=== PATIENT | female | born 1940 | race Caucasian/White ===

== ENCOUNTER 2020-04-07 14:33 | Outpatient (CLI) | payer MEDICARE, SELFPAY ==
--- NOTE | ~2020-04-07 | XR_ITS ---
XR cervical spine 4-5V DATE: 04/07/2020 14:54 INDICATION: Posterior neck pain, right greater than left. TECHNIQUE: AP, open-mouth, lateral and swimmer views COMPARISON: 12/15/2015 cervical spine FINDINGS: There is reversal cervical curvature. C1 and C2 are normally aligned and the odontoid process is intact. The C2-3 interspace is relatively preserved but there is prominent anterior spurring. There is moderately severe degenerative disc disease with prominent spurring at C3-4, C4-5, C5-6 and C6-7. There is degenerative change at the apophyseal joints. There is uncovertebral joint spurring from C3- 4 through C6-7. No fracture or dislocation or locked facet. No prevertebral soft tissue swelling. IMPRESSION: Reversal of cervical curvature Severe degenerative disc disease and degenerative change at the apophyseal and uncovertebral joints, especially at C3-4 through C6-7 Reviewed, dictated and finalized at location A.
== END 2020-04-07 14:34 | disposition home or self-care (01) ==
PROVIDERS: PCP Internal Medicine; Visit Provider Physician Assistant
DX: M54.2 Cervicalgia (principal); M53.82 Other specified dorsopathies, cervical region
CPT/HCPCS: 72050

== ENCOUNTER 2020-04-14 07:28 | Outpatient (CLI) | payer MEDICARE, SELFPAY ==
--- NOTE | ~2020-04-14 | MR_ITS ---
EXAMINATION: MR cervical spine wo con DATE: 04/14/2020 08:50 INDICATION: Cervicalgia. TECHNIQUE: Magnetic resonance imaging (MRI) of the cervical spine was performed without intravenous c ontrast. Sequences included sagittal T2-weighted FSE, sagittal T2-weighted FS FSE, sagittal T1-weight ed FSE, axial MERGE and axial T2-weighted FSE. COMPARISON: None FINDINGS: Mild reversal of the normal cervical lordosis. 1-2 mm anterolisthesis C2 on C3, 2 mm retrolisthesis C 5 on C6 and 1-2 mm retrolisthesis C6 on C7. Vertebral body heights are normal. Severe disc height lo ss with prominent degenerative endplate changes at C3-C4 through C6-C7. Mild disc height loss at C2-C 3. Cord signal intensity is normal. Not included on the axial images likely central disc extrusions w ith disc material extending craniocaudally to the level of the endplates at T5-T6 and more prominentl y at T2-T3 and small disc protrusion at T4-T5. The following disc levels are specifically discussed: C2-C3: Disc is minimally bulging. There is mild bilateral uncovertebral joint osteoarthritis. There i s severe left and moderate to severe right facet joint osteoarthritis. There is mild left neural fora vera stenosis. There is mild central canal stenosis. C3-C4: Disc is bulging. There is severe bilateral uncovertebral joint osteoarthritis. There is modera te left and severe right facet joint osteoarthritis. There is moderate bilateral neural foraminal gretchen nosis. There is mild central canal stenosis with flattening of the ventral surface of the cord. C4-C5: Disc is bulging. There is severe bilateral uncovertebral joint osteoarthritis. There is severe bilateral facet joint osteoarthritis. There is moderate bilateral neural foraminal stenosis. There i s mild central canal stenosis with flattening of the ventral surface of the cord, more prominent on t he right. C5-C6: Right-sided predominant posterior disc osteophyte complex. There is severe bilateral uncoverte bral joint osteoarthritis. There is moderate right and moderate to severe left facet joint osteoarthr itis. There is moderate bilateral neural foraminal stenosis. There is moderate central canal stenosis with indentation of the ventral surface of the cord which is secondarily widened in transverse diame ter. C6-C7: Right-sided predominant posterior disc osteophyte complex. There is severe bilateral uncoverte bral joint osteoarthritis. There is moderate right and moderate to severe left facet joint osteoarthr itis. There is moderate left and mild to moderate right neural foraminal stenosis. There is mild cent ral canal stenosis with flattening of the right ventral surface of the cord. C7-T1: The disc does not extend beyond the endplate margin. There is mild right and minimal left unco vertebral joint osteoarthritis. There is mild right and severe left facet joint osteoarthritis. There is mild left neural foraminal stenosis. There is no central canal stenosis. IMPRESSION: 1. Severe cervical spondylosis. Reviewed, dictated and finalized at location A.
== END 2020-04-14 07:29 | disposition home or self-care (01) ==
PROVIDERS: PCP Internal Medicine; Visit Provider Physician Assistant
DX: M47.892 Other spondylosis, cervical region (principal)
CPT/HCPCS: 72141

== ENCOUNTER 2020-06-28 09:57 | Outpatient (CLI) | payer MEDICARE, SELFPAY ==
[2020-06-28 10:44] LABS: Basophils Absolute Auto 0.1 K/mm3 (0.0-0.1); Basophils Percent Auto 1.2 % (0.2-1.2); Eosinophils Absolute Auto 0.3 K/mm3 (0-0.3); Eosinophils Percent Auto 5.6 % (0-4.4); Hematocrit 43.6 % (37.0-47.0); Hemoglobin 14.4 g/dL (12.0-15.0); Immature Granulocyte Absolute 0.01 K/mm3 (0.00-0.031); Immature Granulocyte Percent A 0.2 % (0-0.5); Lymphocytes Absolute Auto 1.79 K/mm3 (0.9-3.2); Lymphocytes Percent Auto 34.8 % (18.3-44.2); Mean Corpuscular Hemoglobin 30.8 pg (26-34); Mean Corpuscular Volume 93.2 fl (80-100); Monocytes Absolute Auto 0.4 K/mm3 (0.1-0.6); Monocytes Percent Auto 8.2 % (2.6-8.5); Neutrophils Absolute Auto 2.6 K/mm3 (1.3-6.7); Platelet Count Result 260 k/mm3 (150-375); Red Blood Count 4.68 M/mm3 (4.2-5.4); Red Cell Distribution Width 12.3 % (11.5-14.5); White Blood Count 5.1 K/mm3 (4.5-10.0)
[2020-06-28 11:35] LABS: Cholesterol 155 mg/dL (0-200); HDL Direct 69 mg/dL; Magnesium 2.3 mg/dL (1.6-2.3); Triglycerides 68 mg/dL (<150); Vitamin D 25 Hydroxy 34.5 ng/mL
[2020-06-28 11:49] LABS: LDL Cholesterol Direct 63 mg/dL
[2020-06-28 12:44] LABS: Folic Acid 15.2 ng/mL (2.76->20)
== END 2020-06-28 09:58 | disposition home or self-care (01) ==
LOC: ANHLAB 09:59
PROVIDERS: PCP Internal Medicine; Visit Provider Internal Medicine
DX: E78.00 Pure hypercholesterolemia, unspecified (principal); E55.9 Vitamin D deficiency, unspecified; I10 Essential (primary) hypertension
CPT/HCPCS: 36415; 80061; 82306; 82607; 82746; 83735; 84443; 85025

== ENCOUNTER 2020-12-27 13:09 | Outpatient (CLI) | payer MEDICARE, SELFPAY ==
--- NOTE | ~2020-12-27 | XR_ITS ---
XR foot LT min 3V DATE: 12/27/2020 13:30 INDICATION: Injury one week ago. Pain at first metatarsophalangeal joint TECHNIQUE: 4 views COMPARISON: None FINDINGS: There is prominent plantar and mild posterior calcaneal enthesopathy. No fracture or dislocation, periosteal reaction or bone destruction is evident. IMPRESSION: Calcaneal enthesopathy Reviewed, dictated and finalized at location A. IMPRESSION: Calcaneal enthesopathy
== END 2020-12-27 13:10 | disposition home or self-care (01) ==
LOC: ANHIMG 13:13
PROVIDERS: PCP Internal Medicine; Visit Provider Internal Medicine
DX: M79.672 Pain in left foot (principal); M77.32 Calcaneal spur, left foot
CPT/HCPCS: 73630

== ENCOUNTER 2021-10-03 09:31 | Outpatient (CLI) | payer MEDICARE, SELFPAY ==
[2021-10-03 16:25] LABS: Basophils Absolute Auto 0.1 K/mm3 (0.0-0.1); Basophils Percent Auto 1.1 % (0.2-1.2); Eosinophils Absolute Auto 0.4 K/mm3 (0-0.3); Eosinophils Percent Auto 6.6 % (0-4.4); Immature Granulocyte Absolute 0.01 K/mm3 (0.00-0.031); Immature Granulocyte Percent A 0.2 % (0-0.5); Lymphocytes Absolute Auto 1.75 K/mm3 (0.9-3.2); Lymphocytes Percent Auto 32.1 % (18.3-44.2); Mean Corpuscular HGB Conc 31.8 g/dl (32-36); Mean Corpuscular Hemoglobin 31.1 pg (26-34); Mean Corpuscular Volume 97.8 fl (80-100); Mean Platelet Volume 10.1 fl (7.4-10.4); Monocytes Absolute Auto 0.4 K/mm3 (0.1-0.6); Neutrophils Absolute Auto 2.9 K/mm3 (1.3-6.7); Platelet Count Result 249 k/mm3 (150-375); Red Cell Distribution Width 12.5 % (11.5-14.5); White Blood Count 5.5 K/mm3 (4.5-10.0)
[2021-10-03 16:38] LABS: Alanine Aminotransferase 14 U/L (4-35); Albumin Level 4.4 g/dL (3.5-5.1); Alkaline Phosphatase 76 U/L (38-126); Anion Gap 7 mmol/L (8-16); Aspartate Amino Transferase 70 U/L (14-36); Bilirubin,Total 0.8 mg/dL (0.2-1.3); Blood Urea Nitrogen 16 mg/dL (7-17); Calcium 9.4 mg/dL (8.4-10.2); Carbon Dioxide 28 mmol/L (22-30); Chloride 104 mmol/L (98-107); Cholesterol 190 mg/dL (0-200); Estimated Glomerular Filt Rate > 60; Glucose 102 mg/dL (65-110); HDL Direct 50 mg/dL; Potassium 4.5 mmol/L (3.4-5.0); Sodium 139 mmol/L (137-145); Triglycerides 109 mg/dL (<150)
[2021-10-03 16:49] LABS: LDL Cholesterol Direct 101 mg/dL
[2021-10-03 17:14] LABS: Vitamin D 25 Hydroxy 41.7 ng/mL
[2021-10-03 17:45] LABS: Folic Acid 11.9 ng/mL (2.76->20)
== END 2021-10-03 09:32 | disposition home or self-care (01) ==
LOC: ANHWCLAB 09:35
PROVIDERS: PCP Internal Medicine; Visit Provider Internal Medicine
DX: R53.83 Other fatigue (principal); E55.9 Vitamin D deficiency, unspecified; I10 Essential (primary) hypertension; E78.5 Hyperlipidemia, unspecified
CPT/HCPCS: 36415; 80053; 80061; 82306; 82607; 82746; 84443; 85025

== ENCOUNTER → 2021-12-22 01:48 | Outpatient (CLI) | payer MEDICARE, SELFPAY ==
[2021-12-22 13:04] LABS: SARS-CoV-2 RNA PCR Negative
== END ==
PROVIDERS: PCP Internal Medicine; Visit Provider Internal Medicine
DX: B34.9 Viral infection, unspecified (principal); Z20.822 Contact with and (suspected) exposure to COVID-19
CPT/HCPCS: C9803; U0003; U0005

== ENCOUNTER 2022-03-06 16:22 | Outpatient (CLI) | payer MEDICARE, SELFPAY ==
--- NOTE | ~2022-03-06 | DEXA_ITS ---
Bone Density Report Name: RADHA BROCK Age: 81 Sex: Female Ethnicity: White Date of : 1940 Indication: postmenopausal; screening for osteoporosis; height loss; Referring Provider: UNKNOWN, UNKNOWN Study: Bone densitometry was performed. Exam Date: March 06, 2022 Accession number: [id number] Bone Density: Region BMD T-score Z-score Classification AP Spine(L1-L4) 1.119 0.7 3.3 Normal Femoral Neck (Left) 0.708 -1.3 1.0 Osteopenia Total Hip (Left) 0.911 -0.3 1.8 Normal Femoral Neck (Right) 0.783 -0.6 1.7 Normal Total Hip (Right) 0.907 -0.3 1.8 Normal Total Hip Mean 0.909 -0.3 1.8 Normal World Health Organization criteria for BMD impression classify patients as: Normal (T-score at or above -1.0), Osteopenia (T-score between -1.0 and -2.5), or Osteoporosis (T-score at or below -2.5). 10-year Fracture Risk(1): Major Osteoporotic Fracture 12% Hip Fracture 2.5% Reported Risk Factors: [place] (), Neck BMD=0.708, BMI=27.8 (1) FRAX(R) Version 3.08. Fracture probability calculated for an untreated patient. Fracture probability may be lower if the patient has received treatment. Clinical Information Provided by Patient: Has used the following medications: Vitamin D Patient maximum height was 61 Menopause Age: 60 Drinks caffeinated beverages Onset of menses at age 14 Number of children 2 Impression: The patient has low bone mass, based on the Left Femoral Neck T-score. The patient has an estimated ten-year risk of hip fracture of 2.5% and an estimated ten-year risk of major fracture of 12%, based on the WHO FRAX algorithm. Discussion: BONE DENSITY IS LOW AT ONE OR MORE SKELETAL SITES. This patient's lowest T-score is low at one or more skeletal sites. It meets the World Health Organization's (WHO) criteria for ?low bone mass? (T-score between -1.0 and -2.5). The patient's 10-year risk of fracture as calculated by FRAX is less than the threshold where pharmacological therapy is recommended by the National Osteoporosis Foundation (NOF). However, all treatment decisions require clinical judgment and consideration of individual patient factors, including patient preferences, comorbidities, previous drug use, risk factors not captured in the FRAX model (e.g., frailty, falls, vitamin D deficiency, increased bone turnover, interval significant decline in bone density) and possible under or overestimation of fracture risk by FRAX. The patient should follow a healthful lifestyle (good nutrition with adequate calcium and vitamin D, and appropriate weight-bearing exercise). Follow-Up: Consider repeating this study in 2 to 3 years to reassess this patient's status, or sooner if there is some new clinical indication. Reported by: [facility] on 03/06/2022 4:43:00 PM.
== END 2022-03-06 16:23 | disposition home or self-care (01) ==
PROVIDERS: PCP Internal Medicine
DX: Z78.0 Asymptomatic menopausal state (principal); M85.852 Other specified disorders of bone density and structure, left thigh
CPT/HCPCS: 77080

== ENCOUNTER 2022-03-07 14:25 | Emergency (ER) | payer MEDICARE, SELFPAY ==
--- NOTE | 2022-03-07 14:36 | ED.WOUNDLAC ---
HPI - Wound/Laceration General Chief Complaint: Wound/Laceration Stated Complaint: dog scratch Time Seen by Provider: 03/07/22 15:08 Source: patient and RN notes reviewed Mode of arrival: ambulatory Limitations: no limitations History of Present Illness HPI narrative: 81-year-old female presents concern for a scratch to her right lower leg. Reports earlier this morning she was scratched by her dog. She reports a flap of skin was hanging down, she replaced the flap of skin. Reports she is not up-to-date on her tetanus. She denies any decree strength, sensation, range of motion in the lower leg. She reports bleeding has been controlled. Extremity Location: Right: lower leg Related Data Home Medications Medication Instructions Recorded Confirmed bupropion HCl 100 mg tablet,12 hr 100 mg PO DAILY 06/29/19 03/07/22 sustained-release (Wellbutrin SR) buspirone 10 mg tablet 20 mg PO BID 06/29/19 03/07/22 cholecalciferol (vitamin D3) 50 50 mcg PO DAILY 06/29/19 03/07/22 mcg (2,000 unit) capsule melatonin 3 mg capsule 3 mg PO .hs PRN Insomnia 02/23/20 03/07/22 multivitamin (Multiple Vitamins 1 tablet PO DAILY 02/23/20 03/07/22 tablet) aspirin 325 mg tablet 325 mg PO DAILY 09/18/20 03/07/22 Allergies Allergy/AdvReac Type Severity Reaction Status Date / Time trazodone Allergy Intermediate heart race Verified 03/07/22 14:53 naproxen Allergy Unknown RASH, Verified 03/07/22 14:53 ITCHING Review of Systems Review of Systems: CONSTITUTIONAL: Denies malaise, chills, sweats, or fever. 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 Glaucoma Hearing loss Hyperlipidemia Hypertension Overactive bladder Rectal polyp Surgical History Surgical History (Updated 03/04/22 @ 13:40 by Lexus Larose RT(R)) History of appendectomy History of laminectomy History of rectal surgery History of right knee surgery TKA Family History Family History Other Family history of arthritis Family history of cardiovascular disease Family history of malignant neoplasm Hypertension Social History Social History (Updated 03/04/22 @ 13:40 by Lexus Larose, RT(R)) Smoking packs per day: 0.25 Smoking cigarettes per day: 5.0 Years smoked: 10 Smoking pack-years: 2.50 Smoking status: Former smoker Second hand tobacco smoke exposure: No Smoking end date: 07/28/74 Alcohol intake: current Drinks per week: 10 Substance use: never Comments At time of signature, agree with nursing past medical, surgical, social and family history. There is no relevant family history pertinent to the presenting complaint Exam Narrative: GENERAL: Well-appearing, well-nourished, and in no acute distress. HEAD: Normocephalic, atraumatic. EYES: PERRLA, conjunctivae clear, and EOMI. ENT: Mucous membranes moist. Oropharynx without edema, erythema or lesions. NECK: Supple. No lymphadenopathy CHEST: Clear to auscultation. No respiratory distress. HEART: Regular rate and rhythm. SKIN: Warm, dry. Approximately 11 cm linear abrasion noted to the anterior right lower leg with approximately 4 cm skin tear, torn skin is replaced back on the tissue and is starting to read here, no active bleeding. Wound is surrounded by approximately 0.5 cm of erythema without induration. Visible wound bed is beefy without drainage NEURO: Alert and oriented x3. PSYCH: Normal mood and affect Course Course Jane
[2022-03-07 14:55] VITALS: BP 132/81; PULSE 93; RESP 20; TEMP 36.4; O2SAT 98
[2022-03-07] MEDS: TETANUS,DIPHTHERIA,AC PERTUSSIS ADULT (0.5 ML) BOOSTRIX IM (15:08)
== END 2022-03-07 15:30 | disposition home or self-care (01) ==
PROVIDERS: Emergency Provider Nurse Practitioner; PCP Internal Medicine
DX: S81.811A Laceration without foreign body, right lower leg, initial encounter (principal); W54.8XXA Other contact with dog, initial encounter; Z23 Encounter for immunization; Z87.891 Personal history of nicotine dependence; M19.90 Unspecified osteoarthritis, unspecified site; Z86.718 Personal history of other venous thrombosis and embolism; M79.7 Fibromyalgia; K21.9 Gastro-esophageal reflux disease without esophagitis; H40.9 Unspecified glaucoma; E78.5 Hyperlipidemia, unspecified; I10 Essential (primary) hypertension; F41.9 Anxiety disorder, unspecified; F32.A Depression, unspecified
CPT/HCPCS: 90471; 90715; 99213; G0463

== ENCOUNTER 2022-08-30 09:05 | Emergency (ER) | payer MEDICARE, SELFPAY ==
--- NOTE | 2022-08-30 09:10 | ED.WOUNDLAC ---
HPI - Wound/Laceration General Chief Complaint: Wound/Laceration Stated Complaint: R HAND INJURY Time Seen by Provider: 08/30/22 09:10 Source: patient Mode of arrival: ambulatory Limitations: no limitations History of Present Illness HPI narrative: 82-year-old female presents with complaint of bleeding wound to right hand, dorsal aspect. States that her dog needed to go to the bathroom around 230 this morning. States her dog is hyper and scratched her with its nails to right hand. Has been applying pressure since injury and continues to have bleeding. Patient takes aspirin daily. All systems reviewed and negative except as noted above. Related Data Home Medications Medication Instructions Recorded Confirmed bupropion HCl 100 mg tablet,12 hr 100 mg PO DAILY 06/29/19 08/30/22 sustained-release (Wellbutrin SR) buspirone 10 mg tablet 20 mg PO BID 06/29/19 08/30/22 cholecalciferol (vitamin D3) 50 50 mcg PO DAILY 06/29/19 08/30/22 mcg (2,000 unit) capsule melatonin 3 mg capsule 3 mg PO .hs PRN Insomnia 02/23/20 08/30/22 multivitamin (Multiple Vitamins 1 tablet PO DAILY 02/23/20 08/30/22 tablet) aspirin 325 mg tablet 325 mg PO DAILY 09/18/20 08/30/22 Allergies Allergy/AdvReac Type Severity Reaction Status Date / Time trazodone Allergy Intermediate heart race Verified 08/30/22 09:30 naproxen Allergy Unknown RASH, Verified 08/30/22 09:30 ITCHING Review of Systems Review of Systems: CONSTITUTIONAL: Denies fever, chills, or sweats. EYES: Denies visual changes, redness, or discharge. ENT: Denies rhinorrhea, congestion, sore throat, or otalgia. CARDIOVASCULAR: Denies chest pain, palpitations, or edema. RESPIRATORY: Denies cough or dyspnea. GASTROINTESTINAL: Denies abdominal pain, nausea, vomiting, or diarrhea. GENITOURINARY: Denies dysuria or hematuria. SKIN: Reports laceration to right hand. MUSCULOSKELETAL: Denies back pain, joint pain, or myalgia. NEUROLOGIC: Denies headache, numbness, or weakness. PSYCHIATRIC: Denies anxiety or depression. All other systems reviewed are negative, except as documented in HPI. 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 Glaucoma Hearing loss Hyperlipidemia Hypertension Overactive bladder Rectal polyp Surgical History Surgical History History of appendectomy History of laminectomy History of rectal surgery History of right knee surgery TKA Family History Family History Other Family history of arthritis Family history of cardiovascular disease Family history of malignant neoplasm Hypertension Social History Social History (Updated 07/24/22 @ 13:55 by Jesusita Zhou MA) Smoking packs per day: 0.25 Smoking cigarettes per day: 5.0 Years smoked: 10 Smoking pack-years: 2.50 Smoking status: Former smoker Second hand tobacco smoke exposure: No Smoking end date: 07/28/74 Alcohol intake: current Drinks per week: 10 Substance use: never Lack of Transportation: No Lack of Food: Never True Current Housing: I Have Housing Concerned About Future Housing: No Difficulty Paying Gas/Electric Bills: No Difficulty Paying for Meds: No Currently Unemployed: No Education: Associate Degree Difficulty w/ Childcare or Family Care: No Comments At time of signature, agree with nursing past medical, surgical, social and family history. There is no relevant family history pertinent to the presenting complaint. Exam Narrative: GENERAL: This is a well-nourished, well-developed patient, in no apparent distress. HEAD: normocephalic, atraumatic. EYES: PE
[2022-08-30 09:14] VITALS: BP 131/106; PULSE 83; RESP 16; TEMP 36.6; O2SAT 96
[2022-08-30] MEDS: LIDOCAINE HCL 1% LOCAL INJ 2 ML AMPUL 4 ML INFILTRATE (09:25)
== END 2022-08-30 09:47 | disposition home or self-care (01) ==
PROVIDERS: Emergency Provider Nurse Practitioner Family; PCP Internal Medicine
DX: S61.411A Laceration without foreign body of right hand, initial encounter (principal); W54.8XXA Other contact with dog, initial encounter; Z87.891 Personal history of nicotine dependence; M19.90 Unspecified osteoarthritis, unspecified site; Z86.718 Personal history of other venous thrombosis and embolism; M79.7 Fibromyalgia; H40.9 Unspecified glaucoma; E78.5 Hyperlipidemia, unspecified; I10 Essential (primary) hypertension; F41.9 Anxiety disorder, unspecified; F32.A Depression, unspecified; Z79.82 Long term (current) use of aspirin
CPT/HCPCS: 12001; 99213; G0463

== ENCOUNTER 2022-09-03 11:20 | Emergency (ER) | payer MEDICARE, SELFPAY ==
[2022-09-03 11:27] VITALS: BP 139/81; PULSE 108; RESP 16; TEMP 36.1; O2SAT 97
[2022-09-03 11:31] VITALS: BP 139/81; PULSE 108; RESP 16; TEMP 36.1; O2SAT 97
--- NOTE | 2022-09-03 11:37 | ED.WOUNDLAC ---
HPI - Wound/Laceration General Chief Complaint: Wound/Laceration Stated Complaint: wound check Time Seen by Provider: 09/03/22 11:30 Source: patient Mode of arrival: ambulatory Limitations: no limitations History of Present Illness HPI narrative: 82-year-old female presents for wound check. Patient was here approximately 6 days ago after her dog scratched her right hand. Patient had sutures placed due to puncture wound and bleeding due to taking aspirin daily. Patient reports yellow drainage from wound since injury. Reports an increase in the yellow drainage starting yesterday with soreness to the wound. Afebrile. Range of motion and distal neurovascularly intact. Patient also reports that she has only been taking cephalexin twice a day. Medication was prescribed to take 3 times a day. All systems reviewed and negative except as noted above. Related Data Home Medications Medication Instructions Recorded Confirmed bupropion HCl 100 mg tablet,12 hr 100 mg PO DAILY 06/29/19 09/03/22 sustained-release (Wellbutrin SR) buspirone 10 mg tablet 20 mg PO BID 06/29/19 09/03/22 cholecalciferol (vitamin D3) 50 50 mcg PO DAILY 06/29/19 09/03/22 mcg (2,000 unit) capsule melatonin 3 mg capsule 3 mg PO .hs PRN Insomnia 02/23/20 09/03/22 multivitamin (Multiple Vitamins 1 tablet PO DAILY 02/23/20 09/03/22 tablet) aspirin 325 mg tablet 325 mg PO DAILY 09/18/20 09/03/22 Allergies Allergy/AdvReac Type Severity Reaction Status Date / Time trazodone Allergy Intermediate heart race Verified 09/03/22 11:22 naproxen Allergy Unknown RASH, Verified 09/03/22 11:22 ITCHING Review of Systems Review of Systems: CONSTITUTIONAL: Denies fever, chills, or sweats. EYES: Denies visual changes, redness, or discharge. ENT: Denies rhinorrhea, congestion, sore throat, or otalgia. CARDIOVASCULAR: Denies chest pain, palpitations, or edema. RESPIRATORY: Denies cough or dyspnea. GASTROINTESTINAL: Denies abdominal pain, nausea, vomiting, or diarrhea. GENITOURINARY: Denies dysuria or hematuria. SKIN: Denies rash or itching. Reports yellow drainage from wound to right hand. MUSCULOSKELETAL: Denies back pain, joint pain, or myalgia. NEUROLOGIC: Denies headache, numbness, or weakness. PSYCHIATRIC: Denies anxiety or depression. All other systems reviewed are negative, except as documented in HPI. 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 Glaucoma Hearing loss Hyperlipidemia Hypertension Overactive bladder Rectal polyp Surgical History Surgical History History of appendectomy History of laminectomy History of rectal surgery History of right knee surgery TKA Family History Family History Other Family history of arthritis Family history of cardiovascular disease Family history of malignant neoplasm Hypertension Social History Social History (Updated 07/24/22 @ 13:55 by Jesusita Zhou MA) Smoking packs per day: 0.25 Smoking cigarettes per day: 5.0 Years smoked: 10 Smoking pack-years: 2.50 Smoking status: Former smoker Second hand tobacco smoke exposure: No Smoking end date: 07/28/74 Alcohol intake: current Drinks per week: 10 Substance use: never Lack of Transportation: No Lack of Food: Never True Current Housing: I Have Housing Concerned About Future Housing: No Difficulty Paying Gas/Electric Bills: No Difficulty Paying for Meds: No Currently Unemployed: No Education: Associate Degree Difficulty w/ Childcare or Family Care: No Comments At time of signature, agree with nursing past medical, surgica
== END 2022-09-03 11:32 | disposition home or self-care (01) ==
PROVIDERS: Emergency Provider Nurse Practitioner Family; PCP Internal Medicine
DX: S61.411D Laceration without foreign body of right hand, subsequent encounter (principal); L08.9 Local infection of the skin and subcutaneous tissue, unspecified; W54.8XXD Other contact with dog, subsequent encounter; F41.9 Anxiety disorder, unspecified; M19.90 Unspecified osteoarthritis, unspecified site; F32.A Depression, unspecified; Z86.718 Personal history of other venous thrombosis and embolism; M79.7 Fibromyalgia; K21.9 Gastro-esophageal reflux disease without esophagitis; H40.9 Unspecified glaucoma; E78.5 Hyperlipidemia, unspecified; I10 Essential (primary) hypertension; Z87.891 Personal history of nicotine dependence; Z79.82 Long term (current) use of aspirin
CPT/HCPCS: 99213; G0463

== ENCOUNTER 2022-09-10 09:33 | Outpatient (CLI) | payer MEDICARE, SELFPAY ==
[2022-09-10 15:34] LABS: Basophils Absolute Auto 0.1 K/mm3 (0.0-0.1); Basophils Percent Auto 1.1 % (0.2-1.2); Eosinophils Absolute Auto 0.3 K/mm3 (0-0.3); Hematocrit 41.9 % (37.0-47.0); Hemoglobin 13.9 g/dL (12.0-15.0); Immature Granulocyte Absolute 0.01 K/mm3 (0.00-0.031); Immature Granulocyte Percent A 0.2 % (0-0.5); Lymphocytes Absolute Auto 1.95 K/mm3 (0.9-3.2); Lymphocytes Percent Auto 31.2 % (18.3-44.2); Mean Corpuscular HGB Conc 33.2 g/dl (32-36); Mean Corpuscular Hemoglobin 30.4 pg (26-34); Mean Corpuscular Volume 91.7 fl (80-100); Mean Platelet Volume 9.2 fl (7.4-10.4); Monocytes Absolute Auto 0.4 K/mm3 (0.1-0.6); Monocytes Percent Auto 6.2 % (2.6-8.5); Neutrophils Absolute Auto 3.5 K/mm3 (1.3-6.7); Neutrophils Percent Auto 56.3 % (45.5-73.1); Platelet Count Result 276 k/mm3 (150-375); Red Blood Count 4.57 M/mm3 (4.2-5.4); Red Cell Distribution Width 12.3 % (11.5-14.5); White Blood Count 6.3 K/mm3 (4.5-10.0)
[2022-09-10 16:52] LABS: Vitamin D 25 Hydroxy 29.9 ng/mL
[2022-09-10 19:52] LABS: Alanine Aminotransferase 17 U/L (6-35); Albumin Level 4.2 g/dL (3.5-5.1); Alkaline Phosphatase 82 U/L (38-126); Anion Gap 5 mmol/L (8-16); Aspartate Amino Transferase 30 U/L (14-36); Bilirubin,Total 0.5 mg/dL (0.2-1.3); Blood Urea Nitrogen 16 mg/dL (7-17); Calcium 9.2 mg/dL (8.4-10.2); Carbon Dioxide 28 mmol/L (22-30); Chloride 106 mmol/L (98-107); Cholesterol 178 mg/dL (0-200); Estimated Glomerular Filt Rate > 60; Glucose 107 mg/dL (65-110); HDL Direct 52 mg/dL; Potassium 4.2 mmol/L (3.4-5.0); Sodium 139 mmol/L (137-145); Triglycerides 105 mg/dL (<150)
[2022-09-10 20:04] LABS: LDL Cholesterol Direct 84 mg/dL
[2022-09-10 22:44] LABS: Folic Acid 13.6 ng/mL (2.76->20)
== END 2022-09-10 09:34 | disposition home or self-care (01) ==
LOC: ANHGOSHLAB 09:35
PROVIDERS: PCP Internal Medicine; Visit Provider Internal Medicine
DX: E55.9 Vitamin D deficiency, unspecified (principal); E78.5 Hyperlipidemia, unspecified; I10 Essential (primary) hypertension; R53.83 Other fatigue
CPT/HCPCS: 36415; 80053; 80061; 82306; 82607; 82746; 84443; 85025

== ENCOUNTER 2023-08-20 09:59 | Outpatient (CLI) | payer MEDICARE, SELFPAY ==
[2023-08-20 10:29] LABS: Alanine Aminotransferase 18 U/L (6-35); Albumin Level 4.2 g/dL (3.5-5.1); Alkaline Phosphatase 89 U/L (38-126); Anion Gap 6 mmol/L (8-16); Aspartate Amino Transferase 30 U/L (14-36); Bilirubin,Total 0.6 mg/dL (0.2-1.3); Blood Urea Nitrogen 12 mg/dL (7-17); Calcium 9.1 mg/dL (8.4-10.2); Carbon Dioxide 27 mmol/L (22-30); Chloride 104 mmol/L (98-107); Cholesterol 156 mg/dL (0-200); Estimated Glomerular Filt Rate > 60; Glucose 99 mg/dL (65-110); HDL Direct 58 mg/dL; Potassium 3.8 mmol/L (3.4-5.0); Sodium 137 mmol/L (137-145); Triglycerides 96 mg/dL (<150)
[2023-08-20 10:40] LABS: LDL Cholesterol Direct 75 mg/dL
[2023-08-20 11:08] LABS: Vitamin D 25 Hydroxy 54.3 ng/mL
== END 2023-08-20 10:00 | disposition home or self-care (01) ==
PROVIDERS: PCP Internal Medicine; Visit Provider Internal Medicine
DX: E78.5 Hyperlipidemia, unspecified (principal); E55.9 Vitamin D deficiency, unspecified; I10 Essential (primary) hypertension
CPT/HCPCS: 36415; 80053; 80061; 82306

== ENCOUNTER 2023-09-21 11:58 | Emergency (ER) | payer MEDICARE, SELFPAY ==
--- NOTE | ~2023-09-21 | XR_ITS ---
XR knee RT 3V 09/21/2023 12:59 INDICATION: Right knee pain PROCEDURE: 3 views right knee COMPARISON: 02/11/2022 FINDINGS: Fracture, dislocation or subluxation is not identified. Small knee effusion. There is a rig ht knee arthroplasty. Prosthesis well seated. The soft tissues appear within normal limits. No forei gn bodies are identified. IMPRESSION: 1: NO ACUTE BONE OR JOINT ABNORMALITY IDENTIFIED. Reviewed, dictated and finalized at location A. [employer]
[2023-09-21 12:37] VITALS: BP 130/80; PULSE 107; RESP 16; TEMP 35.9; O2SAT 98
--- NOTE | 2023-09-21 13:06 | ED.LOWEXIN ---
HPI - Extremity Injury (Lower) General Chief Complaint: Extremity Injury, Lower Stated Complaint: R KNEE PAIN Time Seen by Provider: 09/21/23 12:50 Source: patient Mode of arrival: ambulatory Limitations: no limitations History of Present Illness HPI Narrative: [place] is a an 83-year-old female patient presenting to the clinic today with complaints of right knee pain x1 week. She reports that when the ice/snow occurred last week she slipped on the ice and twisted her right knee. History of a right arthroplasty. Stating she is having pain to the anterior, medial, and posterior knee. Related Data Home Medications Medication Instructions Recorded Confirmed cholecalciferol (vitamin D3) 50 50 mcg PO DAILY 06/29/19 09/21/23 mcg (2,000 unit) capsule melatonin 3 mg capsule 3 mg PO .hs PRN Insomnia 02/23/20 09/21/23 multivitamin (Multiple Vitamins 1 tablet PO DAILY 02/23/20 09/21/23 tablet) aspirin 325 mg tablet 81 mg PO DAILY 05/13/23 09/21/23 Allergies Allergy/AdvReac Type Severity Reaction Status Date / Time trazodone Allergy Intermediate heart race Verified 09/21/23 12:46 naproxen Allergy Unknown RASH, Verified 09/21/23 12:46 ITCHING Review of Systems Review of Systems: Pertinent positives per HPI. Patient denies any fever, chills, rash, headache, visual changes, dizziness, cough, runny nose, sore throat, shortness of breath, chest pain, palpitations, nausea, vomiting, diarrhea, constipation, abdominal pain, or any urinary issues. 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 Glaucoma Hearing loss Hyperlipidemia Hypertension Overactive bladder Rectal polyp Surgical History Surgical History History of appendectomy History of laminectomy History of rectal surgery History of right knee surgery TKA Family History Family History Other Family history of arthritis Family history of cardiovascular disease Family history of malignant neoplasm Hypertension Social History Social History Smoking packs per day: 0.25 Smoking cigarettes per day: 5.0 Years smoked: 10 Smoking pack-years: 2.50 Smoking status: Former smoker Second hand tobacco smoke exposure: No Smoking end date: 07/28/74 Alcohol intake: current Drinks per week: 10 Substance use: never Lack of Transportation: No Lack of Food: Never True Current Housing: I Have Housing Concerned About Future Housing: No Difficulty Paying Gas/Electric Bills: No Difficulty Paying for Meds: No Currently Unemployed: No Education: Associate Degree Difficulty w/ Childcare or Family Care: No Comments At the time of my signature, I reviewed and agree with the nursing past medical, surgical, social, and family history. There is no relevant family history pertinent to the patient complaint. Exam Narrative: General: Well-developed, well nourished, in no apparent distress Head: Normocephalic, atraumatic. Cardio: Regular rate and rhythm, s1 and s2 normal, no murmur appreciated. Resp: Clear to auscultation bilaterally, no rhonchi, rales, wheezing or rubs. Musculoskeletal: No obvious swelling or deformity,tender to palpation over the anterior and medial right knee, pain with valgus and varus testing the medial and posterior knee, grossly normal range of motion, muscle strength strong and equal, peripheral pulse strong, no edema, no cyanosis, normal gait and station Course Course Emergency Course: Portions of this record may have been created with voice abiel
== END 2023-09-21 13:38 | disposition home or self-care (01) ==
PROVIDERS: Emergency Provider Nurse Practitioner Family; PCP Internal Medicine
DX: S83.411A Sprain of medial collateral ligament of right knee, initial encounter (principal); W18.40XA Slipping, tripping and stumbling without falling, unspecified, initial encounter; M79.7 Fibromyalgia; K21.9 Gastro-esophageal reflux disease without esophagitis; H40.9 Unspecified glaucoma; E78.5 Hyperlipidemia, unspecified; I10 Essential (primary) hypertension; M19.90 Unspecified osteoarthritis, unspecified site; Z79.82 Long term (current) use of aspirin; M25.461 Effusion, right knee
CPT/HCPCS: 73562; 99213; G0463

== ENCOUNTER 2023-11-10 12:59 | Outpatient (CLI) | payer MEDICARE, SELFPAY | END 2023-11-10 13:00 | disposition home or self-care (01) | LOC: ANHAUDASC 13:02 | PROVIDERS: PCP Internal Medicine; Visit Provider Internal Medicine | DX: H90.3 Sensorineural hearing loss, bilateral (principal); H93.13 Tinnitus, bilateral | CPT/HCPCS: 92557; 92567 ==

== ENCOUNTER 2024-02-10 11:30 | Outpatient (CLI) | payer MEDICARE, SELFPAY ==
--- NOTE | ~2024-02-10 | XR_ITS ---
[id number]_CR Ordering provider: Pro Lin DO History: . ABY NECK PAIN THAT RADIATES UP INTO EARS. LT WORSE . Comparison: April 07, 2020 FINDINGS: VERTEBRAL BODIES: Normal height and alignment. No visible fracture or subluxation. The dens is intact . DISK SPACES: Narrowing of the disc C3-C4, C4/C5, C5-C6, and C6-C7. Multilevel facet joint disease. Mu ltilevel uncovertebral joint osteoarthritic changes. PARASPINOUS SOFT TISSUES: No prevertebral soft tissue swelling. IMPRESSION: No acute osseous abnormality cervical spine. Multilevel degenerative disc disease. Reviewed, dictated and finalized at location A.
== END 2024-02-10 11:31 | disposition home or self-care (01) ==
LOC: ANHIMG 11:35
PROVIDERS: PCP Internal Medicine; Visit Provider Internal Medicine
DX: M50.30 Other cervical disc degeneration, unspecified cervical region (principal)
CPT/HCPCS: 72040

== ENCOUNTER 2024-05-06 12:30 | Outpatient (RCR) | payer MEDICARE, SELFPAY ==
--- NOTE | 2024-03-31 16:34 | OPREHPOC ---
Outpatient Therapy Plan of Care This is a Multidisciplinary Plan of Care that may contain components documented by all disciplines (PT, OT, and ST.) PT Problem 1 PT Problem #1 Knowledge Deficit PT Goal 1 Goal / Goal Update Pt to be IND with issued HEP Target Visit 6 PT Problem 2 PT Problem #2 Pain PT Goal 1 Goal / Goal Update Pt to report neck pain no greater than 3/10 in the last week. Target Visit 6 PT Goal 2 Goal / Goal Update Pt to report 75% improvement in overall symptoms. Target Visit 6 PT Problem 3 PT Problem #3 Impaired Range of Motion PT Goal 1 Goal / Goal Update Pt to improve cervical rotation to 50 deg raj Target Visit 6
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
--- NOTE | 2024-04-07 14:30 | PCPTNOTE ---
Patient called & cancelled scheduled appointment this date due, did not give a reason why.
--- NOTE | 2024-05-06 12:56 | PTOPDC ---
Assessment and note entered by Esme Leigh, PT Evaluation Information Assessment Status Discharge Diagnosis neck pain ICD-10 Condition Codes (PT) Cervicalgia M54.2,M25.512,Weakness R53.1 Subjective Information Pt reports no pain in the left shoulder. Really minimal feels will always have stiffness. States in the day can function without issues. At night sometimes will irritate her, controlled with tylenol. the neck itself has also done well. Has had come issues with the shoulder muscle and jaw on left side. Sates is sometimes a headache on the one side, but this comes and goes. Turning head to left will relieve. Will only have this once a week now. Thinks maybe aggravated shoulder by throwing ball with dog. Self-perceived improvement: feels back to where she was prior to this issue. 100% Reported Pain Level Pain Score 0: Self Report Assessment PT Clinical Summary Pt has attended 5 therapy sessions. She states she feels she is at her baseline, that she will always be somewhat stiff due to her images and prior conditions. she has met all her goals for therapy and verbalizes understanding o fcontacting therapist in the future with questions. Thus patient is being discharged due to completion of program. Plan of Care PT Services Indicated No
== END 2024-05-06 14:39 | disposition home or self-care (01) ==
LOC: ANHGOSHPT 12:30
PROVIDERS: PCP Internal Medicine; Visit Provider Internal Medicine
DX: M54.2 Cervicalgia (principal)
CPT/HCPCS: 97110; 97140; 97161; 97530; 97750

== ENCOUNTER 2024-06-29 14:18 | Outpatient (CLI) | payer MEDICARE, SELFPAY ==
--- NOTE | ~2024-06-29 | MM_ITS ---
EXAMINATION: MM screening lauren BI w anupam HISTORY: Screening TECHNIQUE: Craniocaudal and mediolateral oblique 3-D tomosynthesis images were obtained and synthetic 2-D images were generated. CAD analysis was submitted and interpreted. COMPARISON: No prior mammogram is available for comparison at this institution. BREAST PARENCHYMAL COMPOSITION: Not dense: There are scattered areas of fibroglandular density. FINDINGS: There are focal asymmetries in the upper outer quadrant of the right breast. There are no s uspicious masses, calcifications or architectural distortion in the left breast to suggest malignancy . IMPRESSION: 1. Focal right breast asymmetries in the upper outer quadrant, middle third. 2. Additional mammographic views and possible breast ultrasound are recommended. BI-RADS Category 0: Incomplete: Needs additional imaging evaluation. Reviewed, dictated and finalized at location B. RIAL COMBINER IMPRESSION: 1. Focal right breast asymmetries in the upper outer quadrant, middle third. 2. Additional mammographic views and possible breast ultrasound are recommended . BI-RADS Category 0: Incomplete: Needs additional imaging evaluation.
== END 2024-06-29 14:19 | disposition home or self-care (01) ==
PROVIDERS: PCP Internal Medicine; Visit Provider Internal Medicine
DX: Z12.31 Encounter for screening mammogram for malignant neoplasm of breast (principal); R92.8 Other abnormal and inconclusive findings on diagnostic imaging of breast
CPT/HCPCS: 77063; 77067

== ENCOUNTER 2024-07-06 15:04 | Outpatient (CLI) | payer MEDICARE, SELFPAY ==
--- NOTE | ~2024-07-06 | MMUS_ITS ---
EXAMINATION: US breast RT limited, MM diagnostic lauren RT w anupam HISTORY: Follow-up right breast asymmetries TECHNIQUE: Additional 3-D tomosynthesis images of the right breast were performed and synthetic 2-D i mages were generated. CAD analysis was submitted and interpreted. High resolution Limited right breas t ultrasound was performed. COMPARISON: Comparison to multiple prior studies sequentially, with oldest reviewed study dated 01/2008. BREAST PARENCHYMAL COMPOSITION: Dense: The breasts are heterogeneously dense, which may obscure small masses FINDINGS: MAMMOGRAPHIC FINDINGS: The areas of asymmetry in the right breast in the upper outer quadrant are less apparent with spot co mpression views, compatible with superimposed fibroglandular content. No discrete mass, architectural distortion or suspicious cluster of calcifications. ULTRASOUND: Limited right breast ultrasound: Normal heterogeneous echotexture without focal solid or cystic mass. IMPRESSION: 1. No evidence for malignancy in the right breast. 2. Routine yearly screening mammogram and regular clinical breast examination are recommended. BI-RADS Category 2: Benign finding(s). Reviewed, dictated and finalized at location B. MAN IMPRESSION: 1. No evidence for malignancy in the right breast. 2. Routine yearly screening mammogram and regular clinical breast examination a re recommended. BI-RADS Category 2: Benign finding(s).
== END 2024-07-06 15:05 | disposition home or self-care (01) ==
PROVIDERS: PCP Internal Medicine; Visit Provider Internal Medicine
DX: R92.8 Other abnormal and inconclusive findings on diagnostic imaging of breast (principal)
CPT/HCPCS: 76642; 77061; 77065; G0279

== ENCOUNTER 2024-07-26 10:04 | Emergency (ER) | payer MEDICARE, SELFPAY ==
--- NOTE | ~2024-07-26 | XR_ITS ---
EXAMINATION: XR chest 2V DATE: 07/26/2024 11:45 INDICATION: 2 days of cough TECHNIQUE: PA and lateral views of the chest were obtained. COMPARISON: Chest radiograph and CT dated 06/24/2019 FINDINGS: Increased eventration at the anterior right hemidiaphragm. Mild linear discoid lingular atelectasis a t the anterior left lower lung. No other airspace opacities, pulmonary edema, pleural effusion or pne umothorax. The cardiomediastinal silhouette is normal. Severe thoracic spondylosis. IMPRESSION: 1. Mild lingular atelectasis and increasing eventration along the anterior right hemidiaphragm.. Reviewed, dictated and finalized at location B. MANAGER IMPRESSION: 1. Mild lingular atelectasis and increasing eventration along the anterior righ t hemidiaphragm..
[2024-07-26 10:51] VITALS: BP 115/77; PULSE 121; RESP 18; TEMP 37.3; O2SAT 97
[2024-07-26 11:31] LABS: EDCOVIDSCREEN Negative (Negative); EDINFLUASCREEN Negative (Negative); EDINFLUBSCREEN Negative (Negative)
--- NOTE | 2024-07-26 11:33 | ED_ITS ---
HPI - URI/Sore Throat General Chief Complaint: Upper Respiratory Infection Stated Complaint: Cough/Headache/Dizziness Time Seen by Provider: 07/26/24 11:24 Source: patient and RN notes reviewed Mode of arrival: ambulatory Limitations: no limitations History of Present Illness HPI Narrative: Patient presents today with a 3 day history of sore throat which has improved since onset with a 2 day history of sinus pressure, nasal congestion, cough, headache. She reports some mild dizziness today. Denies shortness of breath or fever. She has tried Mucinex and Tylenol without much relief. Denies history of asthma or COPD. She is a nonsmoker. Related Data Home Medications ?Medication ?Instructions ?Recorded ?Confirmed ?Last Taken ?Type cholecalciferol (vitamin D3) 50 50 mcg PO DAILY 06/29/19 07/26/24 Unknown History mcg (2,000 unit) capsule melatonin 3 mg capsule 3 mg PO .hs PRN Insomnia 02/23/20 07/26/24 Unknown History multivitamin (Multiple Vitamins 1 tablet PO DAILY 02/23/20 02/23/24 Unknown History tablet) aspirin 325 mg tablet 81 mg PO DAILY 05/13/23 07/26/24 Unknown History Allergies Allergy/AdvReac Type Severity Reaction Status Date / Time trazodone Allergy Intermediate heart race Verified 07/26/24 10:43 naproxen Allergy Unknown RASH, Verified 07/26/24 10:43 ITCHING Review of Systems Review of Systems: CONSTITUTIONAL: Denies body aches, fever, chills, or sweats. EYES: Denies visual changes, redness, or discharge. ENT: Denies rhinorrhea, or otalgia.+ congestion, sore throat, sinus pressure CARDIOVASCULAR: Denies chest pain, palpitations, or edema. RESPIRATORY: Denies dyspnea.+ cough GASTROINTESTINAL: Denies abdominal pain, nausea, vomiting, or diarrhea. GENITOURINARY: Denies dysuria or hematuria. SKIN: Denies rash, itching, or wounds. MUSCULOSKELETAL: Denies back pain, joint pain, or myalgia. NEUROLOGIC: Denies numbness, tingling, or weakness.+ headache, dizziness PSYCH: Denies depression or anxiety. 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 Anxiety Depression Arthritis Fibromyalgia Overactive bladder GERD (gastroesophageal reflux disease) Rectal polyp DVT (deep venous thrombosis) Hyperlipidemia Hypertension Glaucoma Cataract Surgical History Surgical History History of laminectomy History of rectal surgery History of right knee surgery TKA History of appendectomy Family History Family History Other Family history of arthritis Family history of cardiovascular disease Family history of malignant neoplasm Hypertension Social History Social History Smoking packs per day: 0.25 Smoking cigarettes per day: 5.0 Years smoked: 10 Smoking pack-years: 2.50 Smoking status: Former smoker Second hand tobacco smoke exposure: No Smoking end date: 07/28/74 Alcohol intake: current Drinks per week: 10 Substance use: never Lack of Transportation: No Lack of Food: Never True Current Housing: I Have Housing Concerned About Future Housing: No Difficulty Paying Gas/Electric Bills: No Difficulty Paying for Meds: No Currently Unemployed: No Education: Associate Degree Difficulty w/ Childcare or Family Care: No Comments At time of signature, I have reviewed and agree with nursing past medical, surgical, social and family history unless otherwise noted. Please see nursing chart for further information. There is no relevant family history pertinent to the presenting complaint Exam Narrative: GENERAL: Well-appearing, well-nourished, and in no acute distress. HEAD: Normocephalic, atraumatic. EYES: EOMI. No redness or drainage. Conjunctivae normal. ENT: Mucous membranes pink and moist. Nares clear. No rhinorrhea. TMs normal bilaterally. Throat normal. Uvula midline. NECK: Normal AROM. Supple. No lymphadenopathy. CHEST: No respiratory distress. Clear to auscultation. HEART: Regular rhythm. Tachycardia. No murmur appreciated. EXTREMITIES: Normal range of motion. No edema. SKIN: Warm, dry, no rash. Capillary refill normal. Normal skin turgor. NEURO: No focal deficits. Alert and oriented x3. Gait steady. PSYCH: Normal affect. No signs of depression or anxiety. Course Course Level of Care: [facility] Care Visit Vital Signs Vital signs: Vital Signs Temperature 99.1 F 07/26/24 10:51 Pulse Rate 121 H 07/26/24 10:51 Respiratory Rate 18 07/26/24 10:51 Blood Pressure 115/77 07/26/24 10:51 Pulse Oximetry 97 07/26/24 10:51 Oxygen Delivery Room Air 07/26/24 10:51 Temperature 99.1 F 07/26/24 10:51 Pulse Rate 121 H 07/26/24 10:51 Respiratory Rate 18 07/26/24 10:51 Blood Pressure 115/77 07/26/24 10:51 Pulse Oximetry 97 07/26/24 10:51 Oxygen Delivery Room Air 07/26/24 11:15 Reviewed MDM - URI/Sore Throat MDM Narrative Medical decision making narrative: COVID and influenza negative. Chest x-ray is negative for pneumonia does show some atelectasis. Symptoms likely viral in etiology. Discussed [id number] medication use and duration of illness. Patient will be prescribed some Tessalon Perles and a Medrol Dosepak for her symptoms. Anticipatory guidance given. ED precautions given. Differential Diagnosis Differential diagnosis: Likely upper respiratory infection, viral infection, bronchitis, influenza and other (Pneumonia, COVID) Lab Data Attestation: I reviewed the patient's lab results. Labs: Lab Results 07/26/24 Range/Units 11:30 POC Influenza A Ag Negative (Negative) POC Influenza B Ag Negative (Negative) POC SARS CoV-2 Ag Negative (Negative) Imaging Data Radiologist's impression: ITS Impressions Chest X-Ray 07/26/24 11:48 IMPRESSION: 1. Mild lingular atelectasis and increasing eventration along the anterior right hemidiaphragm.. Critical Care Time Critical Care Time Critical Care Time: No Discharge Plan Discharge Clinical Impression: Viral syndrome Patient Disposition: Home, Self-Care Condition: Stable Instructions: Viral Syndrome (ED) Additional Instructions: Your chest x-ray is negative for pneumonia. Your influenza is also negative. Please take the Medrol Dosepak and Tessalon Perles as directed. Follow-up with your PCP if symptoms are not improving. As discussed, please go to the ER immediately if symptoms worsen to include chest pain, shortness of breath, or fever. Patient Language: Latvian Prescriptions: New benzonatate 200 mg capsule 200 mg PO TID PRN (Reason: cough) Qty: 20 0RF methylprednisolone [Medrol (Lucian)] 4 mg tablets,dose pack See Rx Instructions .ROUTE .COMPLEX Qty: 21 0RF Rx Instructions: orally per package directions No Action cholecalciferol (vitamin D3) 50 mcg (2,000 unit) capsule 50 mcg PO DAILY multivitamin [Multiple Vitamins] Tablet 1 tablet PO DAILY melatonin 3 mg capsule 3 mg PO .hs PRN (Reason: Insomnia) cyclobenzaprine 10 mg tablet 10 mg PO .QHS PRN (Reason: muscle spasm) Qty: 30 0RF aspirin 325 mg tablet 81 mg PO DAILY lisinopril 5 mg tablet 5 mg PO DAILY Qty: 90 3RF duloxetine 60 mg capsule,delayed release(DR/EC) 60 mg PO DAILY Qty: 90 3RF buspirone 10 mg tablet 20 mg PO BID Qty: 120 2RF rosuvastatin 5 mg tablet 5 mg PO DAILY Qty: 90 1RF tramadol 50 mg tablet 50 mg PO Q12H PRN (Reason: pain) Qty: 30 0RF methylprednisolone [Medrol (Lucian)] 4 mg tablets,dose pack See Rx Instructions PO PER PKG DIR Qty: 21 0RF Rx Instructions: PO PER PKG DIR Follow-up/Referrals: Pro Lin DO [Primary Care Provider] - Time of Disposition: 12:03
== END 2024-07-26 12:07 | disposition home or self-care (01) ==
PROVIDERS: Emergency Provider Nurse Practitioner; PCP Internal Medicine
DX: B34.9 Viral infection, unspecified (principal); Z20.822 Contact with and (suspected) exposure to COVID-19; Z87.891 Personal history of nicotine dependence; I10 Essential (primary) hypertension; E78.5 Hyperlipidemia, unspecified; K21.9 Gastro-esophageal reflux disease without esophagitis; M79.7 Fibromyalgia; M19.90 Unspecified osteoarthritis, unspecified site; H40.9 Unspecified glaucoma; Z86.718 Personal history of other venous thrombosis and embolism; Z79.82 Long term (current) use of aspirin
CPT/HCPCS: 71046; 87426; 87804; 99213; G0463

== ENCOUNTER 2024-12-08 10:01 | Outpatient (CLI) | payer MEDICARE, SELFPAY ==
--- OUTSIDE RECORDS SUMMARY | 2024-12-08 10:21 | XMS_ITS | Clinical Summary ---
Author Organization [facility] [address] Address [address] [place] [address] Care Team Providers Care Shotblast Operator Name Role Phone Jose Saldaña DO Primary Care Provider [phone] Allergies Active Allergy Reactions Criticality Noted Date Comments Naproxen Sodium Rash,Itching Low 05/23/2020 Medications rivaroxaban (Xarelto) 20 mg Tablet Take 20 mg by mouth daily with supper. Active DULoxetine (CYMBALTA) 60 mg Capsule, Delayed Release(E.C.) Take 60 mg by mouth daily. Active busPIRone (BUSPAR) 10 mg tablet Take 10 mg by mouth 3 times daily. Active linaCLOtide (Linzess) 72 mcg Capsule capsule Take 72 mcg by mouth daily before breakfast. Active lisinopriL (PRINIVIL) 5 mg tablet Take 5 mg by mouth daily. Active rosuvastatin (CRESTOR) 5 mg tablet Take 5 mg by mouth daily. Active aspirin (TRINITY CHEWABLE) 81 mg Tablet, Chewable Take 81 mg by mouth daily. Active melatonin 5 mg Tablet Take by mouth nightly as needed. Active acetaminophen (TYLENOL) 500 mg tablet Take 500 mg by mouth every 6 hours as needed. Active multivitamin (DAILY-KEVIN) tablet Take 1 Tablet by mouth daily. Active cholecalciferol , vitamin D3, (Vitamin D3) 1,000 unit Take by mouth. Active Active Problems Problem Noted Date Diagnosed Date Cervical spondylosis without myelopathy 05/23/20 20 Other secondary kyphosis, cervical region 2019 Bilateral occipital neuralgia 05/23/2020 Family History Relation Name Status Comments Father Mother Social History Tobacco Use Types Packs/Day Years Used Date Smoking Tobacco: Former Cigarettes Q uit: 1976 Alcohol Use Standard Drinks/Week Comments Yes 0 (1 standard drink = 0.6 oz pur e alcohol) Comments Unknown Sex and Gender Information Value Date Recorded Sex Assigned at Not on file Legal Sex Female 3:02 PM CDT Gender Identity Not on file Sexual Orientation Not on file Last Filed Vital Signs Vital Sign Reading Time Taken Comments Blood Pressure - - Pulse - - Temperature 36.4 C (97.6 F) 05/23/2020 10:23 AM CDT Respiratory Rate - - Oxygen Saturation - - Inhaled Oxygen Concentration - - Weight 62.1 kg (137 lb) 05/23/2020 10:23 AM CDT Height 152.4 cm (5') 05/23/2020 10:23 AM CDT Body Mass Index 26.76 05/23/2020 10:23 AM CDT Plan of Treatment Health Maintenance Due Date Last Done Comments ZOSTER VACCINE (1 of 2) 1992 OSTEOPOROSIS SCREENING 2007 PNEUMOCOCCAL VACCINE 50+ YEA RS (2 of 2 - PCV) 03/28/2015 03/28/2014, 07/03/2010 RSV VACCINE (60+ or ) (1 - 1-dose 75+ series) 2017 INFLUENZA VACCINE (#1) 2024 03/28/2014, 2011 DTAP/TDAP/TD VACCINES (2 - Td or Tdap) 11/21/2024 Insurance Care Teams Shotblast Operator Relationship Specialty Start Date End Date Jose Saldaña DO [address] [facility] [address] [place] [address] PCP - General Internal Medicine 04/17/20
--- OUTSIDE RECORDS SUMMARY | 2024-12-08 10:22 | XMS_ITS | Clinical Summary ---
Author [place] [facility] [place] [address] Address [address] [place] [address] Care Team Providers Care Airport Screener Name Role Phone Jose Saldaña MD Primary Care Provider [phone] Elias Davis MD Unavailable [phone] Allergies Active Allergy Reactions Criticality Noted Date Comments Naproxen Rash Medium Trazodone Other (See comments) Low 03/02/2019 Racing heartbeat Medications cholecalciferol (VITAMIN D3) 1,000 unit capsule 0 0 5 Active rosuvastatin (CRESTOR) 5 mg tablet TAKE 1/2 TABLET BY ORAL ROUTE EVERY DAY 45 0 4 Active lisinopril (PRINIVIL,ZESTR IL) 5 mg tablet TAKE 1 TABLET BY MOUTH EVERY DAY [address] (CYMBALTA) 60 mg capsule TAKE ONE CAPSULE BY MOUTH EVERY DAY 90 0 4 Active busPIRone (BUSPAR) 10 mg tabletIndicatio ns:Generalized Anxiety Disorder Take 1 tablet (10 mg total) by mouth 2 (two) times a day Active estrogens, conjugated, (PREMARIN) vaginal cream Apply 0.5g to vagina twice weekly 42.5 g 6 0 Active Additional Information Patient taking differently: As needed, Apply 0.5g to vagina twice weekly, Informant: Self, Reported on 07/16/2022 multivitamin capsuleIndicati ons:Vitamin Deficiency Prevention Take 1 capsule by mouth every morning Active melatonin 3 mg tablet extended releaseIndicati ons:sleep Take 1 tablet by mouth nightly Active mirabegron ER (Myrbetriq) 25 mg tablet extended release 24 hr Take 1 tablet (25 mg total) by mouth daily 90 tablet 3 2 Active sodium, potassium & mag sulfates (Suprep Bowel Prep Kit) 17.5-3.13-1.6 gram recon solnIndications :Bowel Evacuation Day before procedure clear liquids and take half of prep at 6pm with clear liquids, take second half of prep day of procedure four hours prior to leaving home 354 mL 3 Active Active Problems Problem Noted Date Diagnosed Date Bright red blood per rectum 09/01/2020 Rectal bleeding 09/01/2020 Overview (09/01/2020): Added automatically from request for surgery [id number] Bilateral occipital neuralgia 05/23/2020 Cervical spondylosis without myelopathy 05/23/20 20 Other secondary kyphosis, cervical region 2019 Gastrointestinal stromal tumor (GIST) of rectum 03/30/2019 Overview (03/30/2019): Added automatically from request for surgery [id number] Mass of anus 03/04/2019 Overview (03/04/2019): Added automatically from request for surgery [id number] GIST, non-malignant 03/02/2019 Family history of ovarian cancer 11/04/2017 Asymmetrical sensorineural hearing loss 10/13/19 16 Subjective tinnitus 10/13/2015 Arthritis of knee 06/27/2014 Overview (10/31/2016): Knee arthritis Torn cartilage 04/12/2014 Overview (10/31/2016): Meniscal tear Fibrositis 11/17/2013 Overview (11/01/2016): Fibromyalgia Depression 11/17/2013 Overview (11/01/2016): Depression Carpal tunnel syndrome 08/10/2013 Overview (10/31/2016): CTS (carpal tunnel syndrome) Hypertension 06/18/2013 Hyperlipidemia 06/18/2013 Ear ringing 06/18/2013 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 Fibromyalgia 06/18/2013 Gastroesophageal reflux disease 04/28/2013 Overview (10/31/2016): GERD (gastroesophageal reflux disease) Overactive bladder 04/28/2013 Overview (11/01/2016): OAB (overactive bladder) Hypercholesterolemia 01/20/2013 Overview (10/31/2016): Hypercholesterolemia Cramps of lower extremity 01/03/2012 Overview (10/31/2016): Leg cramps Glaucoma 07/03/2010 Overview (10/31/2016): Glaucoma Mitral valve prolapse 07/03/2010 Overview (11/01/2016): MVP (mitral valve prolapse) Family history of coronary artery disease 2009 Overview (11/01/2016): Family history of premature CAD Immunizations Immunization Administration Dates Next Due Influenza, Quadrivalent, Hig h Dose, Preservative Free, Intrr 05/18/2020 Influenza, Split 04/29/2011,04/27/2010 Influenza, Trivalent, High D ose, Split, Preservative Free, Intramuscular 06/02/2019,05/22/2018,05/21/2018,05/22,03/28/2014 Influenza, Trivalent, IM (MDV) 06/27/2012,2011 Moderna SARS-CoV-2 Monovalen t Vaccination (12+ YRS) 06/03/2021,10/13/2020,09/15/2020 Pneumococcal Polysaccharide PPV23 03/28/2014,01/2010 Tdap 11/21/2014,11/21/2014 ZOSTER LIVE 11/25/2012 Surgical History Surgery Date Site/Laterality Comments LAMINECTOMY 07/28/1980 - 07/27/1981 KNEE ARTHROSCOPY 07/28/2009 - 07/27/2010 CARPAL TUNNEL RELEASE 07/28/2013 - 07/27/2014 Right KNEE ARTHROSCOPY 07/28/2013 - 07/27/2014 Right REPLACEMENT TOTAL KNEE 04/27/2017 - 05/27/2017 Right APPENDECTOMY BACK SURGERY MENISCUS SURGERY EXAMINATION UNDER ANESTHESIA 09/01/2020 control of rectal hemorrhage RECTAL SURGERY 08/21/2020 Transanal endoscopic resection rectal GIST Medical History Medical History Date Comments Hx Other Medical 1980 ruptured disc 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 Chronic constipation Hypertension Hyperlipidemia Depression Cataract Glaucoma Anxiety Acute torn meniscus 2007 right Acute deep vein thrombosis (DVT) (HCC) R leg s/p arthroscopy Menopause ovarian failure Family History Medical History Relation Name Comments Colon cancer Cousin 2 Cancer, colon; Coronary artery disease Father Cyndee nary artery disease; Cause of : Coronary artery disease Depression Father Depression; Hypertension Father Hypertension; Anuerysm Mother Aneurysm; Cause of : Aneurysm Breast cancer Mother's Sister Depression Sister 3 Depression; Hypertension Sister 4 Hypertension; Other Sister 5 Cancer -mulleri an tumors; Cause of : Cancer -mullerian tumors Ovarian cancer Sister 6 Cancer, ovari an; Cause of : Cancer, ovarian Uterine cancer Sister 6 Deep vein thrombosis Neg Hx Relation Name Status Comments Cousin 1 Alive Cousin 2 Father (Age 58) Mother (Age 56) Mother's Sister Sister 1 Sister 2 Sister 3 Sister 4 Sister 5 Sister 6 Social History Tobacco Use Types Packs/Day Years Used Date Smoking Tobacco: Former Cigarettes 0.3 5 1 3 1977 Smokeless Tobacco: Never Alcohol Use Standard Drinks/Week Comments Yes 5 (1 standard drink = 0.6 oz pur e alcohol) Humiliation, Afraid, Rape, and Kick questionnair e Answer Date Recorded Within the last year, have y ou been afraid of your partner or ex-partner? No 02/11/2020 Within the last year, have y ou been humiliated or emotionally abused in other ways by your partner or ex-partner? No Within the last year, have y ou been kicked, hit, slapped, or otherwise physically hurt by your partner or ex-partner? No 02/11/2020 Within the last year, have y ou been raped or forced to have any kind of sexual activity by your partner or ex-partner? No 02/11/2020 Social Connection and Isolat ion Panel [NHANES] Answer Date Recorded In a typical week, how many times do you talk on the phone with family, friends, or neighbors? More than three times a week 02/11/2020 How often do you get togethe r with friends or relatives? Once a week 02/11/2020 How often do you attend chur ch or mormon services? More than 4 times per year 02/11/2020 Do you belong to any clubs o r organizations such as scientology groups, unions, fraternal or athletic groups, or school groups? Yes 02/11/2020 How often do you attend meet ings of the clubs or organizations you belong to? More than 4 times per year 02/11/2020 Are you , , di vorced, , never , or living with a partner? 02/11/2020 AUDIT-C Answer Date Recorded Q1: How often do you have a drink containing alc ohol? 2-3 times a week 11/01/2022 Average Number of Drinks Not on file 023 Frequency of Binge Drinking Not on file 01/2023 [facility] of Occupat ional Health - Occupational Stress Questionnaire Answer Date Recorded Do you feel stress - tense, restless, nervous, or anxious, or unable to sleep at night because your mind is troubled all the time - these days? Not at all 02/11/2020 Exercise Vital Sign Answer Date Recorde d On average, how many days pe r week do you engage in moderate to strenuous exercise (like a brisk walk)? 2 days 02/11/2020 On average, how many minutes do you engage in exercise at this level? 30 min 02/11/2020 Personal Safety Answer Date Recorded Have you ever been in or are you currently in a harmful physical or emotional relationship or is someone making you feel afraid or unsafe? Denies 11/01/2022 Comments No Sex and Gender Information Value Date Recorded Sex Assigned at Not on file Legal Sex Female 7:08 PM STANDARDS ENGINEER Gender Identity Not on file Sexual Orientation Not on file Obstetrics History Para Term AB IAB SAB Ectopic Multiple Livin g Live Births 2 2 2 2 Date Outcome GA Total Labor Labor/2nd/3rd Weight Sex Type Anes PTL Alicia A1 A5 Name Clin Para Vag-S pont Living Para Vag-S pont Living Comments Post Menopause Last Filed Vital Signs Vital Sign Reading Time Taken Comments Blood Pressure 130/79 08/26/2023 2:29 PM STANDARDS ENGINEER Pulse 80 08/26/2023 2:29 PM STANDARDS ENGINEER Temperature 36.6 C (97.8 F) 08/26/2023 2:29 PM STANDARDS ENGINEER Respiratory Rate 23 11/01/2022 12:30 PM CDT Oxygen Saturation 96% 08/26/2023 2:29 PM STANDARDS ENGINEER Inhaled Oxygen Concentration - - Weight 61.2 kg (135 lb) 08/26/2023 2:29 PM STANDARDS ENGINEER Height 152.4 cm (5') 08/26/2023 2:29 PM STANDARDS ENGINEER Body Mass Index 26.37 08/26/2023 2:29 PM STANDARDS ENGINEER Plan of Treatment Health Maintenance Due Date Last Done Comments Depression Screening 1940 Osteoporosis Screening-Bone Density Scan 1942 Hepatitis B Screening 1960 Zoster Vaccine (2 of 3) 01/20/2013 11/25/2012 Pneumococcal vaccine 65+ (2 of 2 - PCV) 03/28/2015 03/28/2014, 07/03/2010 Well Visit 65+ 09/18/2022 09/18/2021, 04/28, 11/06/2018, Additional history exists Fall Risk Assessment 11/02/2023 11/01/2022 Covid-19 Vaccine (4 2023-2 5 season) 2024 06/03/2021, 10/13/2020, 09/15/2020 DTaP/Tdap/Td Vaccine (3 - Td or Tdap) 11/21/2024 11/21/2014, 11/21/2014 Influenza Vaccine (Season Ended) 2025 05/18/2020, 06/02/2019, 05/22/2018, Additional history exists Medical Devices Implanted Type Area Sales Route Driver Helper Device Identifier Shelf Expiration Date Model / Serial / Lot Total Knee Replacement Right: Knee Insurance [facility] MEDICARE [facility] MEDICARE Address: [address] [address] [place] [address] [facility] MEDICARE [facility] MEDICARE Advance Directives For more information, please contact: [phone] * Full Code (Latest Code Status on File) Date Activated Date Inactivated Comments 11/01/2022 11:16 AM 11/01/2022 5:04 PM * Full Code Date Activated Date Inactivated Comments 09/01/2020 3:26 AM 09/04/2020 3:51 PM * Full Code Date Activated Date Inactivated Comments 08/21/2020 3:29 PM 08/22/2020 8:31 PM * Full Code Date Activated Date Inactivated Comments 03/18/2019 8:11 AM 03/18/2019 2:02 PM * Full Code Date Activated Date Inactivated Comments 02/05/2019 8:29 AM 02/05/2019 3:21 PM Care Teams Airport Screener Relationship Specialty Start Date End Date Jose Saladña MD [address] [address] PCP - General 12/09/16 Elias Davis MD [address] [facility] [address] [place] [address] Cable Braider Gastroenterology 03/02/19
--- OUTSIDE RECORDS SUMMARY | 2024-12-08 10:22 | XMS_ITS | Referral Summary ---
Author Organization [facility] [place] [address] Address [address] [place] [address] Care Team Providers Care Global Sales Manager Name Role Phone Jose Saldaña MD Primary Care Provider [phone] Elias Davis MD Unavailable Allergies Active Allergy Reactions Criticality Noted Date [...] (09/01/2020): Added automatically from request for surgery [id number] Bilateral occipital neuralgia 05/23/2020 Cervical spondylosis without myelopathy 05/23/20 20 Other secondary kyphosis, cervical region 2019 Gastrointestinal stromal tumor (GIST) of rectum 03/30/2019 Overview (03/30/2019): Added automatically from request for surgery [id number] Mass of anus 03/04/2019 Overview (03/04/2019): Added automatically from request for surgery [id number] GIST, non-malignant 03/02/2019 Family history of ovarian [...] PPV23 03/28/2014,01/2010 Tdap 11/21/2014,11/21/2014 ZOSTER LIVE 11/25/2012 Social History Tobacco Use Types Packs/Day Years Used Date Smoking Tobacco: Former Cigarettes 0.3 5 1 973 - 1978 Smokeless Tobacco: Never Alcohol Use Standard Drinks/Week [...] often do you attend chur ch or samaritan services? More than 4 times per year 02/11/2020 Do you belong to any clubs o r organizations such as temple groups, unions, fraternal or athletic groups, or [...] of Binge Drinking Not on file 01/2023 [facility] [place] of Occupat ional Health - Occupational Stress [...] on file Legal Sex Female 7:08 PM CHYRON OPERATOR Gender Identity Not on file Sexual Orientation Not on file Last Filed Vital Signs Vital Sign Reading Time Taken Comments Blood Pressure 130/79 08/26/2023 2:29 PM CHYRON OPERATOR Pulse 80 08/26/2023 2:29 PM CHYRON OPERATOR Temperature 36.6 C (97.8 F) 08/26/2023 2:29 PM CHYRON OPERATOR Respiratory Rate 23 11/01/2022 12:30 PM CDT Oxygen Saturation 96% 08/26/2023 2:29 PM CHYRON OPERATOR Inhaled Oxygen Concentration - - Weight 61.2 kg (135 lb) 08/26/2023 2:29 PM CHYRON OPERATOR Height 152.4 cm (5') 08/26/2023 2:29 PM CHYRON OPERATOR Body Mass Index 26.37 08/26/2023 2:29 PM CHYRON OPERATOR Plan of Treatment Not on file Medical Devices Implanted Type Area Mail Caller Device Identifier Shelf Expiration Date Model / Serial / Lot Total Knee Replacement Right: Knee Insurance [facility] MEDICARE ADVANTAGE [employer] MEDICARE [employer] MEDICARE Advance Directives For more information, please contact: [phone] * Full Code (Latest Code Status on [...] 8:29 AM 02/05/2019 3:21 PM Care Teams Global Sales Manager Relationship Specialty Start Date End Date Jose Saldaña MD [address] [facility] [address] [place] [address] PCP - General 12/09/16 Elias Davis MD [address] [facility] [address] [place] [address] Electoral Officer Gastroenterology 03/02/19
[2024-12-08 19:34] LABS: Basophils Absolute Auto 0.1 K/mm3 (0.0-0.1); Basophils Percent Auto 1.2 % (0.2-1.2); Eosinophils Absolute Auto 0.3 K/mm3 (0-0.3); Eosinophils Percent Auto 4.5 % (0-4.4); Hematocrit 43.1 % (37.0-47.0); Hemoglobin 13.9 g/dL (12.0-15.0); Immature Granulocyte Absolute 0.01 K/mm3 (0.00-0.031); Immature Granulocyte Percent A 0.2 % (0-0.5); Lymphocytes Absolute Auto 1.78 K/mm3 (0.9-3.2); Lymphocytes Percent Auto 30.8 % (18.3-44.2); Mean Corpuscular HGB Conc 32.3 g/dl (32-36); Mean Corpuscular Hemoglobin 30.7 pg (26-34); Mean Corpuscular Volume 95.1 fl (80-100); Mean Platelet Volume 9.7 fl (7.4-10.4); Monocytes Absolute Auto 0.5 K/mm3 (0.1-0.6); Monocytes Percent Auto 7.8 % (2.6-8.5); Neutrophils Absolute Auto 3.2 K/mm3 (1.3-6.7); Neutrophils Percent Auto 55.5 % (45.5-73.1); Platelet Count Result 232 k/mm3 (150-375); Red Blood Count 4.53 M/mm3 (4.2-5.4); Red Cell Distribution Width 12.2 % (11.5-14.5); White Blood Count 5.8 K/mm3 (4.5-10.0)
[2024-12-08 20:13] LABS: Alanine Aminotransferase 17 U/L (6-35); Albumin Level 4.3 g/dL (3.5-5.1); Alkaline Phosphatase 94 U/L (38-126); Anion Gap 6 mmol/L (4-12); Aspartate Amino Transferase 54 U/L (14-36); Bilirubin,Total 0.5 mg/dL (0.2-1.3); Blood Urea Nitrogen 24 mg/dL (7-17); Calcium 9.4 mg/dL (8.4-10.2); Carbon Dioxide 29 mmol/L (22-30); Chloride 102 mmol/L (98-107); Cholesterol 175 mg/dL (0-200); Estimated Glomerular Filt Rate > 60; Glucose 82 mg/dL (65-110); HDL Direct 55 mg/dL; Magnesium 2.1 mg/dL (1.6-2.3); Potassium 4.2 mmol/L (3.4-5.0); Sodium 137 mmol/L (137-145); Triglycerides 110 mg/dL (<150)
[2024-12-08 20:24] LABS: LDL Cholesterol Direct 81 mg/dL
[2024-12-08 20:46] LABS: Vitamin D 25 Hydroxy 47.3 ng/mL
== END 2024-12-08 10:02 | disposition home or self-care (01) ==
LOC: ANHGOSHLAB 10:02
PROVIDERS: PCP Nurse Practitioner; Visit Provider Nurse Practitioner
DX: E78.5 Hyperlipidemia, unspecified (principal); I10 Essential (primary) hypertension; E55.9 Vitamin D deficiency, unspecified; G47.62 Sleep related leg cramps; Z13.29 Encounter for screening for other suspected endocrine disorder
CPT/HCPCS: 36415; 80053; 80061; 82306; 83735; 85025

== ENCOUNTER 2025-05-16 12:59 | Outpatient (CLI) | payer MEDICARE, SELFPAY | END 2025-05-16 13:00 | disposition home or self-care (01) | LOC: ANHAUDASC 13:00 | PROVIDERS: PCP Nurse Practitioner; Visit Provider Nurse Practitioner | DX: H90.3 Sensorineural hearing loss, bilateral (principal) | CPT/HCPCS: 92557; 92567 ==

== ENCOUNTER 2025-07-11 08:39 | Outpatient (CLI) | payer MEDICARE, SELFPAY ==
--- NOTE | ~2025-07-11 | MM_ITS ---
EXAMINATION: MM screening [facility] BI w anupam HISTORY: Screening TECHNIQUE: Craniocaudal and mediolateral oblique 3-D tomosynthesis images were obtained and synthetic 2-D images were generated. CAD analysis was submitted and interpreted. COMPARISON: Comparison to multiple prior studies sequentially, with oldest reviewed study dated 01/02/2008. BREAST PARENCHYMAL COMPOSITION: Not Dense: There are scattered areas of fibroglandular density. FINDINGS: There is no evidence of suspicious mass, calcification, or architectural distortion to suggest malignancy in either breast. Scattered benign-appearing calcifications are present. IMPRESSION: 1. No mammographic evidence of malignancy. 2. Recommend routine screening mammography in one year. BI-RADS Category 2: Benign finding(s). Reviewed, dictated and finalized at location A. DISTRIBUTOR
== END 2025-07-11 08:40 | disposition home or self-care (01) ==
PROVIDERS: PCP Nurse Practitioner; Visit Provider Nurse Practitioner
DX: Z12.31 Encounter for screening mammogram for malignant neoplasm of breast (principal)
CPT/HCPCS: 77063; 77067